=== PATIENT | female | born 1940 | race African-American/Black ===

== ENCOUNTER 2023-03-21 12:49 | Emergency (ER) | payer MEDICARE, OTHER ==
[~2023-03-21] VITALS: Ht 165.1 cm; Wt 91.0 kg
[2023-03-21 12:54] VITALS: BP 196/97; PULSE 83; RESP 18; TEMP 97.6; O2SAT 100
[2023-03-21] MEDS ORDERED: OFLO5DRO4 LEFT EAR (13:50)
== END 2023-03-21 14:32 | disposition home or self-care (01) ==
LOC: ER 12:49
DX: H60.92 Unspecified otitis externa, left ear (principal); I10 Essential (primary) hypertension; E78.00 Pure hypercholesterolemia, unspecified; E11.9 Type 2 diabetes mellitus without complications; Z88.5 Allergy status to narcotic agent
CPT/HCPCS: 99283